=== PATIENT | male | born 1950 | race Caucasian/White ===

== ENCOUNTER 2016-04-30 00:59 | Inpatient (IN) | payer MEDICARE ==
[~2016-04-30] VITALS: Ht 182.9 cm; Wt 90.7 kg
[~2016-04-30 00:59] MED LIST: LORA-622 PO; MULTTAB61 PO; TIMO0.5S32 OP
[2016-04-30] MEDS ORDERED: LORazepam 2MG/ML-1ML VIAL ONE ×2 (01:09→03:05)
[2016-04-30] MEDS ORDERED: LORazepam 2MG/ML-1ML VIAL IV ONE ×4 (01:30→06:00)
[2016-04-30 01:33] LABS: Basophils # (auto) 0.1 uL; Basophils % (auto) 0.4 % (0.0-2.0); DEFINITIVE VIEW TRANSMISSION; Eosinophils # (auto) 0.8 uL; Eosinophils % (auto) 6.8 % (0.0-7.0); Hematocrit 46.1 % (41.0-53.0); Hemoglobin 14.5 g/dL (13.5-17.5); Lymphocytes % (auto) 32.3 % (10.0-50.0); Mean Corpuscular Hemoglobin 30.4 pg (28.0-32.0); Mean Corpuscular Hgb Conc. 31.4 g/dL (32.0-36.0); Mean Corpuscular Volume 96.8 fL (80.0-100.0); Mean Platelet Volume 7.5 fL (7.4-10.4); Monocytes # (auto) 0.8 uL; Monocytes % (auto) 6.4 % (0.0-12.0); Neutrophils # (auto) 6.7 uL; Neutrophils % (auto) 54.1 % (37.0-80.0); Platelet Count (auto) 289 10^3/uL (140-450); White Blood Cell 12.5 10^3/uL (4.4-10.8)
[2016-04-30 01:50] LABS: INR 1.11 (0.9-1.15); Partial Thromboplastin Time 28.2 sec (22.64-33.71); Prothrombin Time 11.4 sec (9.37-12.3)
[2016-04-30 01:54] LABS: BUN/Creatinine Ratio 15.8; Calcium 8.7 mg/dL (8.5-10.1); Magnesium 2.5 mg/dL (1.6-2.6); Potassium 3.8 mmol/L (3.5-5.1)
[2016-04-30 01:56] LABS: Urine Bilirubin Negative (Negative); Urine Blood TRACE /uL (Negative); Urine Color Yellow (Yellow); Urine Glucose Normal (Normal); Urine Hyaline Cast MOD /lpf (0 - 2); Urine Nitrite Negative (Negative); Urine RBC 2 /hpf (0 - 3); Urine Urobilinogen Normal (Negative)
[2016-04-30 01:57] LABS: Bilirubin, Total 0.2 mg/dL (0.2-1.0); Total Protein 7.7 g/dL (6.4-8.2)
[2016-04-30 01:57] LABS: Urine Ketone 1+ (Negative)
[2016-04-30] MEDS ORDERED: SODIUM BICARBONATE 8.4 % INJ 50ML VIAL IV ONE (02:15)
[2016-04-30] MEDS ORDERED: ETOMIDATE (2MG/ML) 20ML VIAL IV ONE (02:15)
[2016-04-30] MEDS ORDERED: SUCCINYLCHOLINE CHLORIDE 20 MG/ML 10ML VIAL IV ONE (02:15)
[2016-04-30] MEDS ORDERED: MIDAZOLAM DRIP 100 mg/100mL NS 100 ML IV SCH (02:15)
[2016-04-30] MEDS ORDERED: SODIUM CHLORIDE 0.9% 1,000 ML IV ONE (02:15)
[2016-04-30] MEDS ORDERED: PHENYTOIN SODIUM 50 MG/ML 5ML INJ VIAL IV ONE (02:52)
[2016-04-30] MEDS ORDERED: PHENYTOIN IV DILANTIN 1,000 MG in SODIUM CHL 0.9% 250 ML IV ONE (03:00)
[2016-04-30] MEDS ORDERED: HALOPERIDOL LACTATE 5 MG/ML INJ VIAL ONE (03:04)
[2016-04-30] MEDS ORDERED: diphenhdrAMINE HCL 50 MG/1 ML VL ONE (03:05)
[2016-04-30] MEDS ORDERED: HALOPERIDOL LACTATE 5 MG/ML INJ VIAL IM ONE ×2 (03:30→06:00)
[2016-04-30] MEDS ORDERED: diphenhdrAMINE HCL 50 MG/1 ML VL IV ONE ×2 (03:30→06:00)
[2016-04-30 05:00] VITALS: BP 145/77
[2016-04-30] MEDS ORDERED: DIVA500T59 PO (05:06)
[2016-04-30] MEDS ORDERED: NITROGLYCERIN 0.4 MG SL TAB SL PRN (06:45)
[2016-04-30] MEDS ORDERED: LORazepam 2MG/ML-1ML VIAL IV PRN (06:45)
[2016-04-30] MEDS ORDERED: ONDANSETRON HCL 4 MG/2 ML VIAL IV PRN (06:45)
[2016-04-30] MEDS ORDERED: HYDROcodone-ACET 5/325MG TAB PO PRN (06:45)
[2016-04-30] MEDS ORDERED: ACETAMINOPHEN 325 MG TAB PO PRN (06:45)
[2016-04-30] MEDS ORDERED: MORPHINE SULF INJ 2 MG/ML SYRINGE 1ML IV PRN (06:45)
[2016-04-30] MEDS: SODIUM CHLORIDE 0.9% 1,000 ML IV SCH ×2 (07:01→23:16)
[2016-04-30 09:00] VITALS: BP 112/71
[2016-04-30] MEDS ORDERED: DIVA500T12 PO (09:32)
[2016-04-30] MEDS: ENOXAPARIN SOD 40 MG/0.4 ML SYRINGE SC SCH (09:42)
[2016-04-30] MEDS: FAMOTIDINE 20 MG TAB PO SCH ×2 (09:43→22:07)
[2016-04-30] MEDS ORDERED: PHENYTOIN DILANTIN IV SCH (10:00)
[2016-04-30] MEDS ORDERED: SODIUM CHL 0.9% IV SCH (10:00)
[2016-04-30 10:07] VITALS: BP 112/75
[2016-04-30 13:00] VITALS: BP 108/66
[2016-04-30] MEDS ORDERED: DEXTROSE (50%) 50ML SYRG IV PRN (14:15)
[2016-04-30 17:00] VITALS: BP 121/79
[2016-04-30] MEDS: ACCU-CHEK COMFORT CURVE STRIP VI SCH ×2 (17:00→22:00)
[2016-04-30] MEDS: InsuLIN REG 1unit/0.01ml Soln (100units/ml) SC SCH ×2 (17:00→22:00)
[2016-04-30 22:00] VITALS: BP 124/74
[2016-05-01 05:47] LABS: Basophils # (auto) 0 uL; Basophils % (auto) 0.4 % (0.0-2.0); Eosinophils # (auto) 0.1 uL; Eosinophils % (auto) 0.6 % (0.0-7.0); Hematocrit 40.8 % (41.0-53.0); Hemoglobin 13.4 g/dL (13.5-17.5); Lymphocytes # (auto) 2.1 uL; Lymphocytes % (auto) 20.6 % (10.0-50.0); Mean Corpuscular Hemoglobin 30.5 pg (28.0-32.0); Mean Corpuscular Hgb Conc. 32.9 g/dL (32.0-36.0); Mean Corpuscular Volume 92.7 fL (80.0-100.0); Mean Platelet Volume 6.9 fL (7.4-10.4); Monocytes # (auto) 0.9 uL; Monocytes % (auto) 8.3 % (0.0-12.0); Neutrophils # (auto) 7.3 uL; Neutrophils % (auto) 70.1 % (37.0-80.0); Platelet Count (auto) 240 10^3/uL (140-450); Red Cell Distribution Width 14.7 % (11.6-16.0); White Blood Cell 10.4 10^3/uL (4.4-10.8)
[2016-05-01] MEDS: InsuLIN REG 1unit/0.01ml Soln (100units/ml) SC SCH ×2 (06:01→11:30)
[2016-05-01] MEDS: ACCU-CHEK COMFORT CURVE STRIP VI SCH ×2 (06:01→11:30)
[2016-05-01 06:16] LABS: Albumin 3.3 g/dL (3.4-5.0); BUN/Creatinine Ratio 14.6; Calcium 8.1 mg/dL (8.5-10.1); Potassium 3.9 mmol/L (3.5-5.1)
[2016-05-01 06:19] LABS: Bilirubin, Total 0.4 mg/dL (0.2-1.0); Total Protein 6.2 g/dL (6.4-8.2)
[2016-05-01 08:00] VITALS: BP 120/78
[2016-05-01] MEDS: ENOXAPARIN SOD 40 MG/0.4 ML SYRINGE SC SCH (09:52)
[2016-05-01] MEDS: FAMOTIDINE 20 MG TAB PO SCH (09:52)
[2016-05-01 11:28] VITALS: BP 120/78
[2016-05-01 12:00] VITALS: BP 133/79
== END 2016-05-01 12:42 | disposition home or self-care (01) | DRG 101 ==
LOC: EDBD 00:59 → ER 01:01 → TELE 01:02 → TELE-CENTR 09:05
PROVIDERS: ADMIT Nurse Practitioner; ATTEND Internal Medicine
DX: G40.409 Other generalized epilepsy and epileptic syndromes, not intractable, without status epilepticus (principal); F12.90 Cannabis use, unspecified, uncomplicated; N18.2 Chronic kidney disease, stage 2 (mild); E11.22 Type 2 diabetes mellitus with diabetic chronic kidney disease; H40.9 Unspecified glaucoma; Z80.3 Family history of malignant neoplasm of breast; Z82.0 Family history of epilepsy and other diseases of the nervous system; Z82.3 Family history of stroke; Z82.49 Family history of ischemic heart disease and other diseases of the circulatory system; Z87.828 Personal history of other (healed) physical injury and trauma; Z88.1 Allergy status to other antibiotic agents; Z87.81 Personal history of (healed) traumatic fracture
CPT/HCPCS: 36415; 36600; 51702; 70450; 71010; 72125; 80053; 81001; 82140; 82805; 82962; 83036; 83735; 84484; 85025; 85379; 85610; 85730; 87040; 87086; 93005; 96361; 96365; 96367; 96372; 96375; 96376; G0434; J0330

== ENCOUNTER → 2019-09-22 | Emergency (ER) | payer MEDICARE, OTHER ==
[~2019-09-22] VITALS: Ht 188 cm; Wt 95.3 kg
[~2019-09-22] MED LIST changes: +DIVA500T12 PO; -LORA-622 PO; +MULT-1018 PO; -MULTTAB61 PO
[2019-09-22 09:30] LABS: Basophils # (auto) 0 10 ^3/uL (0-0.2); Basophils % (auto) 0.2 % (0.0-2.0); Eosinophils # (auto) 0 10 ^3/uL (0-0.8); Eosinophils % (auto) 0.1 % (0.0-7.0); Hematocrit 47.4 % (41.0-53.0); Hemoglobin 15.7 g/dL (13.5-17.5); Lymphocytes # (auto) 0.7 10 ^3/uL (0.4-5.4); Lymphocytes % (auto) 5.8 % (10.0-50.0); Mean Corpuscular Hemoglobin 30.7 pg (28.0-32.0); Mean Corpuscular Volume 92.9 fL (80.0-100.0); Monocytes # (auto) 0.7 10 ^3/uL (0-1.3); Monocytes % (auto) 5.7 % (0.0-12.0); Neutrophils % (auto) 88.2 % (37.0-80.0); Platelet Count (auto) 178 10^3/uL (140-450); White Blood Cell 12.4 10^3/uL (4.4-10.8)
[2019-09-22 09:43] LABS: INR 1.07 (0.9-1.15); Partial Thromboplastin Time 25.6 sec (23.64-32.05)
[2019-09-22 09:47] LABS: Albumin 3.9 g/dL (3.4-5.0); Anion Gap 5 (5-15); Blood Urea Nitrogen 23 mg/dL (7-18); Calcium 9.1 mg/dL (8.5-10.1); Carbon Dioxide 27 mmol/L (21-32); Chloride 107 mmol/L (98-107); Glucose 121 mg/dL (74-106); Potassium 3.7 mmol/L (3.5-5.1); Sodium 139 mmol/L (136-145)
[2019-09-22 09:53] LABS: Alanine Aminotransferase 21 U/L (16-61); Alkaline Phosphatase 62 U/L (45-117); Aspartate Aminotransferase 14 U/L (15-37); BUN/Creatinine Ratio 22.5; Bilirubin, Total 0.5 mg/dL (0.2-1.0); GFR African American 93 mL/min; GFR Non-African American 77 mL/min; Total Protein 7.6 g/dL (6.4-8.2)
[2019-09-22 11:00] VITALS: BP 106/69
== END | disposition home or self-care (01) ==
LOC: EDUNIT# 04:54 → ER 04:59 → EDBD 04:59
DX: R56.9 Unspecified convulsions (principal)
CPT/HCPCS: 36415; 70450; 71045; 80053; 84484; 85025; 85610; 85730; 93005

== ENCOUNTER 2020-04-13 04:06 | Emergency (ER) | payer MEDICARE, OTHER ==
[~2020-04-13] VITALS: Ht 190.5 cm; Wt 81.6 kg
[2020-04-13] MEDS ORDERED: ACCU-CHEK COMFORT CURVE STRIP VI ONE (04:30)
[2020-04-13 05:01] LABS: Basophils # (auto) 0.1 10 ^3/uL (0-0.2); Basophils % (auto) 1.1 % (0.0-2.0); Eosinophils # (auto) 0.4 10 ^3/uL (0-0.8); Eosinophils % (auto) 3.5 % (0.0-7.0); Hematocrit 47.4 % (41.0-53.0); Hemoglobin 16.2 g/dL (13.5-17.5); Lymphocytes # (auto) 2.5 10 ^3/uL (0.4-5.4); Lymphocytes % (auto) 23.2 % (10.0-50.0); Mean Corpuscular Hemoglobin 32.1 pg (28.0-32.0); Mean Corpuscular Hgb Conc. 34.1 g/dL (32.0-36.0); Mean Corpuscular Volume 94.1 fL (80.0-100.0); Monocytes # (auto) 0.6 10 ^3/uL (0-1.3); Monocytes % (auto) 5.3 % (0.0-12.0); Neutrophils # (auto) 7.2 10 ^3/uL (1.6-8.6); Neutrophils % (auto) 66.9 % (37.0-80.0); Platelet Count (auto) 279 10^3/uL (140-450); Red Blood Cells 5.04 10^6/uL (4.5-5.90); Red Cell Distribution Width 14.1 % (11.8-14.3); White Blood Cell 10.7 10^3/uL (4.4-10.8)
[2020-04-13 05:18] LABS: Calcium 8.5 mg/dL (8.5-10.1); Potassium 4.5 mmol/L (3.5-5.1)
[2020-04-13 05:24] LABS: BUN/Creatinine Ratio 22.5; Bilirubin, Total 0.3 mg/dL (0.2-1.0)
[2020-04-13 07:56] LABS: Urine Amorphous Crystal FEW /hpf (None Seen); Urine Bacteria NONE SEEN /hpf (None Seen); Urine Blood 3+ /uL (Negative); Urine Hyaline Cast FEW /lpf (0 - 2); Urine Specific Gravity 1.021 (1.001-1.035); Urine WBC 10 /hpf (0 - 3)
[2020-04-13] MEDS ORDERED: cefTRIAXone 1GM/50ML D5W 50 ML IV ONE ×2 (08:13→08:15)
[2020-04-13] MEDS ORDERED: SODIUM CHLORIDE 0.9% 1,000 ML IV ONE (08:15)
[2020-04-13 12:19] VITALS: BP 126/68
== END 2020-04-13 12:20 | disposition home or self-care (01) ==
LOC: EDBD 04:06 → ER 04:09
DX: G40.802 Other epilepsy, not intractable, without status epilepticus (principal); N39.0 Urinary tract infection, site not specified
CPT/HCPCS: 36415; 70450; 71045; 71250; 72125; 73502; 74176; 80053; 81001; 82962; 85025; 93005; 96361; 96365; 99285; J0696

== ENCOUNTER → 2020-08-25 07:45 | Emergency (ER) | payer OTHER ==
[2020-08-25 07:55] VITALS: BP 109/83
== END | disposition left against medical advice (07) ==
LOC: ER 07:45
DX: I10 Essential (primary) hypertension (principal); Z53.21 Procedure and treatment not carried out due to patient leaving prior to being seen by health care provider

== ENCOUNTER 2020-09-28 19:51 | Inpatient (IN) | payer OTHER, MEDICARE ==
[~2020-09-28] VITALS: Ht 190.5 cm; Wt 84.1 kg
[2020-09-28] MEDS ORDERED: SODIUM CHLORIDE 0.9% 1,000 ML IV ONE (21:00)
[2020-09-28] MEDS ORDERED: SODIUM CHLORIDE 0.9% 500 ML IV ONE (21:00)
[2020-09-28 21:06] LABS: Basophils # (auto) 0.1 10 ^3/uL (0-0.2); Basophils % (auto) 0.7 % (0.0-2.0); Eosinophils # (auto) 0.3 10 ^3/uL (0-0.8); Eosinophils % (auto) 3.4 % (0.0-7.0); Hematocrit 45.7 % (41.0-53.0); Hemoglobin 15.3 g/dL (13.5-17.5); Lymphocytes # (auto) 2.8 10 ^3/uL (0.4-5.4); Lymphocytes % (auto) 36.3 % (10.0-50.0); Mean Corpuscular Hgb Conc. 33.5 g/dL (32.0-36.0); Mean Corpuscular Volume 92.5 fL (80.0-100.0); Monocytes # (auto) 0.6 10 ^3/uL (0-1.3); Monocytes % (auto) 7.1 % (0.0-12.0); Neutrophils # (auto) 4.1 10 ^3/uL (1.6-8.6); Neutrophils % (auto) 52.5 % (37.0-80.0); Nucleated Red Blood Cells % 0.2 %; Red Blood Cells 4.94 10^6/uL (4.5-5.90); White Blood Cell 7.8 10^3/uL (4.4-10.8)
[2020-09-28 21:23] LABS: Anion Gap 5 (5-15); Blood Urea Nitrogen 35 mg/dL (7-18); Calcium 9.2 mg/dL (8.5-10.1); Carbon Dioxide 26 mmol/L (21-32); Chloride 112 mmol/L (98-107); Glucose 108 mg/dL (74-106); Potassium 4.1 mmol/L (3.5-5.1); Sodium 143 mmol/L (136-145)
[2020-09-28 21:29] LABS: Alanine Aminotransferase 23 U/L (16-61); Alkaline Phosphatase 76 U/L (45-117); Aspartate Aminotransferase 15 U/L (15-37); BUN/Creatinine Ratio 19.8; Bilirubin, Total 0.2 mg/dL (0.2-1.0); GFR African American 49 mL/min; GFR Non-African American 40 mL/min; Total Protein 7.2 g/dL (6.4-8.2)
[2020-09-28] MEDS ORDERED: MORPHINE SULF INJ 2 MG/ML SYRINGE 1ML IV PRN (22:15)
[2020-09-28] MEDS ORDERED: ONDANSETRON HCL 4 MG/2 ML VIAL IV PRN (22:15)
[2020-09-28] MEDS ORDERED: ALBUMIN 5% 250 ML IV ONE (22:15)
[2020-09-28] MEDS ORDERED: ACETAMINOPHEN 325 MG TAB PO PRN (22:15)
[2020-09-28] MEDS ORDERED: NITROGLYCERIN 0.4 MG SL TAB SL PRN (22:15)
[2020-09-29 01:04] VITALS: BP 123/51
[2020-09-29] MEDS ORDERED: LAMO100T44 PO (01:38)
[2020-09-29] MEDS ORDERED: LAMO150T26 PO (01:38)
[2020-09-29] MEDS ORDERED: GABA300C10 PO (01:38)
[2020-09-29] MEDS ORDERED: CHOL20007 OR (01:40)
[2020-09-29] MEDS ORDERED: CETI10TA80 PO (01:40)
[2020-09-29 05:00] VITALS: BP 114/68
[2020-09-29 06:21] LABS: Basophils # (auto) 0 10 ^3/uL (0-0.2); Basophils % (auto) 0.6 % (0.0-2.0); Eosinophils # (auto) 0.4 10 ^3/uL (0-0.8); Eosinophils % (auto) 5.3 % (0.0-7.0); Hematocrit 40.8 % (41.0-53.0); Hemoglobin 13.5 g/dL (13.5-17.5); Lymphocytes # (auto) 2.2 10 ^3/uL (0.4-5.4); Lymphocytes % (auto) 31.8 % (10.0-50.0); Mean Corpuscular Hemoglobin 30.9 pg (28.0-32.0); Mean Corpuscular Hgb Conc. 33.2 g/dL (32.0-36.0); Mean Corpuscular Volume 93.1 fL (80.0-100.0); Monocytes # (auto) 0.5 10 ^3/uL (0-1.3); Monocytes % (auto) 7.3 % (0.0-12.0); Neutrophils # (auto) 3.9 10 ^3/uL (1.6-8.6); Nucleated Red Blood Cells % 0.1 %; Red Blood Cells 4.38 10^6/uL (4.5-5.90); Red Cell Distribution Width 14.5 % (11.8-14.3)
[2020-09-29 07:26] LABS: Potassium 4.6 mmol/L (3.5-5.1)
[2020-09-29 07:33] LABS: Albumin 3.5 g/dL (3.4-5.0); Calcium 8.3 mg/dL (8.5-10.1)
[2020-09-29 07:36] LABS: Bilirubin, Total 0.3 mg/dL (0.2-1.0); Total Protein 6.1 g/dL (6.4-8.2)
[2020-09-29 08:30] VITALS: BP 147/92
[2020-09-29] MEDS ORDERED: PANTOPRAZOLE 40 MG TAB PO SCH (10:00)
[2020-09-29 12:30] VITALS: BP 130/60
[2020-09-29 17:00] VITALS: BP 145/88
[2020-09-29] MEDS: SODIUM CHLORIDE 0.9% 1,000 ML IV SCH (17:48)
[2020-09-29 22:00] VITALS: BP_SYST 118; BP_SYST 150; BP_SYST 169; BP_DIAS 72; BP_DIAS 91; BP_DIAS 92
[2020-09-29 22:22] LABS: Alcohol, Urine < 3.0 mg/dL (0-10); Amphetamine Screen, Urine NEGATIVE (NEGATIVE); Barbiturate Scree,Urine NEGATIVE (NEGATIVE); Benzodiazephine Screen, Urine NEGATIVE (NEGATIVE); Cannabinoid Screen, Urine POSITIVE (NEGATIVE); Cocaine Screen, Urine NEGATIVE (NEGATIVE); Opiate Scree,Urine NEGATIVE (NEGATIVE); Phencyclidine Screen, Urine NEGATIVE (NEGATIVE)
[2020-09-29] MEDS ORDERED: lamoTRIgine 100 MG TAB PO SCH (22:32)
[2020-09-29] MEDS ORDERED: GABAPENTIN 300 MG CAP PO ONE (23:00)
[2020-09-30 05:00] VITALS: BP_SYST 141; BP_SYST 150; BP_SYST 162; BP_DIAS 104; BP_DIAS 122; BP_DIAS 75
[2020-09-30] MEDS: GABAPENTIN 300 MG CAP PO SCH ×2 (05:40→13:40)
[2020-09-30] MEDS ORDERED: GABAPENTIN 100 MG CAP PO SCH (06:00)
[2020-09-30 06:17] LABS: Anion Gap 3 (5-15); Blood Urea Nitrogen 18 mg/dL (7-18); Calcium 8.8 mg/dL (8.5-10.1); Carbon Dioxide 28 mmol/L (21-32); Chloride 112 mmol/L (98-107); Glucose 99 mg/dL (74-106); Magnesium 2.4 mg/dL (1.6-2.6); Potassium 4.3 mmol/L (3.5-5.1); Sodium 143 mmol/L (136-145)
[2020-09-30 06:25] LABS: BUN/Creatinine Ratio 18.2; Cholesterol 166 mg/dL (< 200); GFR African American 96 mL/min; GFR Non-African American 79 mL/min; HDL Cholesterol 48 mg/dL (40-59); LDL Cholesterol 102 mg/dL (< 100); Triglycerides 84 mg/dL (< 150)
[2020-09-30 09:00] VITALS: BP_SYST 149; BP_SYST 154; BP_SYST 158; BP_DIAS 101; BP_DIAS 109; BP_DIAS 91
[2020-09-30] MEDS ORDERED: lamoTRIgine 100 MG TAB PO SCH (10:00)
[2020-09-30] MEDS: SODIUM CHLORIDE 0.9% 1,000 ML IV SCH (10:39)
[2020-09-30 13:00] VITALS: BP_SYST 156; BP_SYST 160; BP_DIAS 101; BP_DIAS 84
[2020-09-30] MEDS ORDERED: amLODIPine BESYLATE 5 MG TAB PO ONE (13:00)
[2020-09-30] MEDS ORDERED: LISINOPRIL 20 MG TAB PO ONE (16:15)
[2020-09-30 17:00] VITALS: BP 152/98
[2020-09-30 17:04] VITALS: BP 145/93
== END 2020-09-30 17:30 | disposition home or self-care (01) | DRG 640 ==
LOC: ER 19:52 → TELE-CENTR 23:20
PROVIDERS: ADMIT Nurse Practitioner; ATTEND Internal Medicine
DX: E86.0 Dehydration (principal); N17.0 Acute kidney failure with tubular necrosis; E86.1 Hypovolemia; I95.89 Other hypotension; R00.0 Tachycardia, unspecified; Z20.822 Contact with and (suspected) exposure to COVID-19; Z88.8 Allergy status to other drugs, medicaments and biological substances; E78.5 Hyperlipidemia, unspecified; F12.90 Cannabis use, unspecified, uncomplicated; F43.10 Post-traumatic stress disorder, unspecified; I10 Essential (primary) hypertension; Z80.3 Family history of malignant neoplasm of breast; Z82.0 Family history of epilepsy and other diseases of the nervous system; Z82.3 Family history of stroke; Z82.49 Family history of ischemic heart disease and other diseases of the circulatory system
CPT/HCPCS: 36415; 71045; 80048; 80053; 80061; 80307; 83605; 83735; 83880; 84443; 84484; 85025; 87040; 87426; 93005; 93306; 96361; 96365; G0378

== ENCOUNTER 2020-10-24 22:00 | Inpatient (IN) | payer OTHER, MEDICARE ==
[~2020-10-24] VITALS: Ht 190.5 cm; Wt 84.8 kg
[~2020-10-24 22:00] MED LIST changes: +CETI10TA80 PO; +CHOL20007 OR; +GABA300C10 PO; +LAMO100T44 PO; +LAMO150T26 PO
[2020-10-24] MEDS ORDERED: SODIUM CHLORIDE 0.9% 1,000 ML IV ONE ×2 (22:15→22:30)
[2020-10-24] MEDS ORDERED: ADENOSINE 6 MG/2 ML INJ IV ONE ×2 (22:23→22:45)
[2020-10-24 22:39] LABS: Basophils # (auto) 0.1 10 ^3/uL (0-0.2); Basophils % (auto) 0.7 % (0.0-2.0); Eosinophils # (auto) 0.2 10 ^3/uL (0-0.8); Eosinophils % (auto) 2.1 % (0.0-7.0); Hematocrit 44.9 % (41.0-53.0); Lymphocytes # (auto) 2.4 10 ^3/uL (0.4-5.4); Lymphocytes % (auto) 33.1 % (10.0-50.0); Mean Corpuscular Hemoglobin 30.9 pg (28.0-32.0); Mean Corpuscular Hgb Conc. 33.4 g/dL (32.0-36.0); Mean Corpuscular Volume 92.5 fL (80.0-100.0); Monocytes # (auto) 0.7 10 ^3/uL (0-1.3); Monocytes % (auto) 9.2 % (0.0-12.0); Neutrophils % (auto) 54.9 % (37.0-80.0); Nucleated Red Blood Cells % 0.1 %; Red Blood Cells 4.85 10^6/uL (4.5-5.90); Red Cell Distribution Width 13.9 % (11.8-14.3); White Blood Cell 7.3 10^3/uL (4.4-10.8)
[2020-10-24 22:53] LABS: INR 1.1 (0.9-1.15)
[2020-10-24 23:02] LABS: Albumin 3.5 g/dL (3.4-5.0); Anion Gap 8 (5-15); Blood Urea Nitrogen 25 mg/dL (7-18); Calcium 8.9 mg/dL (8.5-10.1); Carbon Dioxide 23 mmol/L (21-32); Chloride 112 mmol/L (98-107); Glucose 111 mg/dL (74-106); Magnesium 2.1 mg/dL (1.6-2.6); Potassium 3.9 mmol/L (3.5-5.1); Sodium 143 mmol/L (136-145)
[2020-10-24 23:04] LABS: Alanine Aminotransferase 25 U/L (16-61); Aspartate Aminotransferase 19 U/L (15-37); BUN/Creatinine Ratio 19.1; GFR African American 69 mL/min; GFR Non-African American 57 mL/min
[2020-10-24 23:09] LABS: Alkaline Phosphatase 87 U/L (45-117); Bilirubin, Total 0.3 mg/dL (0.2-1.0); Total Protein 7.2 g/dL (6.4-8.2)
[2020-10-25 01:45] LABS: Urine Bacteria FEW /hpf (None Seen); Urine Blood Negative /uL (Negative); Urine Hyaline Cast FEW /lpf (0 - 2); Urine Specific Gravity 1.014 (1.001-1.035); Urine WBC 5 /hpf (0 - 3)
[2020-10-25] MEDS ORDERED: ASPirin 325 MG TAB PO ONE (04:45)
[2020-10-25] MEDS ORDERED: ENOXAPARIN SOD 100 MG/1 ML SYRINGE SC ONE (04:45)
[2020-10-25] MEDS ORDERED: MORPHINE SULFATE INJECTION 2 MG/2 ML SYRG IV PRN (07:45)
[2020-10-25] MEDS ORDERED: ACETAMINOPHEN 325 MG TAB PO PRN (07:45)
[2020-10-25] MEDS ORDERED: DOCUSATE SOD 100 MG CAP PO PRN (07:45)
[2020-10-25] MEDS ORDERED: HYDROcodone-ACET 5/325MG TAB PO PRN (07:45)
[2020-10-25] MEDS ORDERED: ONDANSETRON HCL 4 MG/2 ML VIAL IV PRN (07:45)
[2020-10-25] MEDS ORDERED: NITROGLYCERIN 0.4 MG SL TAB SL PRN (07:45)
[2020-10-25 08:33] LABS: Basophils # (auto) 0.1 10 ^3/uL (0-0.2); Basophils % (auto) 0.7 % (0.0-2.0); Eosinophils # (auto) 0.3 10 ^3/uL (0-0.8); Eosinophils % (auto) 3.3 % (0.0-7.0); Hemoglobin 13.7 g/dL (13.5-17.5); Lymphocytes # (auto) 2.2 10 ^3/uL (0.4-5.4); Lymphocytes % (auto) 28.3 % (10.0-50.0); Mean Corpuscular Hemoglobin 30.8 pg (28.0-32.0); Mean Corpuscular Hgb Conc. 33.3 g/dL (32.0-36.0); Mean Corpuscular Volume 92.5 fL (80.0-100.0); Monocytes # (auto) 0.5 10 ^3/uL (0-1.3); Monocytes % (auto) 6.9 % (0.0-12.0); Neutrophils # (auto) 4.6 10 ^3/uL (1.6-8.6); Neutrophils % (auto) 60.8 % (37.0-80.0); Nucleated Red Blood Cells % 0.1 %; Red Blood Cells 4.43 10^6/uL (4.5-5.90); Red Cell Distribution Width 14.2 % (11.8-14.3); White Blood Cell 7.7 10^3/uL (4.4-10.8)
[2020-10-25 08:57] LABS: Cholesterol 134 mg/dL (< 200); HDL Cholesterol 37 mg/dL (40-59); LDL Cholesterol 85 mg/dL (< 100); Triglycerides 63 mg/dL (< 150)
[2020-10-25] MEDS ORDERED: ZINC SULFATE 220mg CAP or TAB PO SCH (10:00)
[2020-10-25] MEDS ORDERED: MULTIPLE VITAMIN TAB PO SCH (10:00)
[2020-10-25] MEDS ORDERED: ASCORBIC ACID 500 MG TAB PO SCH (10:00)
[2020-10-25] MEDS ORDERED: ADENOSINE 71 MG in GIVE UN-DILUTED 0 ML IV ONE (10:15)
[2020-10-25 10:59] VITALS: BP 150/91
[2020-10-25] MEDS: ASPirin 81 mg TAB PO SCH (13:27)
[2020-10-25] MEDS: lamoTRIgine 100 MG TAB PO SCH ×2 (13:27→21:46)
[2020-10-25] MEDS: METOPROLOL TARTRATE 25 MG TAB PO SCH ×3 (13:28→22:00)
[2020-10-25] MEDS: FAMOTIDINE 20 MG TAB PO SCH (13:28)
[2020-10-25] MEDS ORDERED: SODIUM CHLORIDE 0.9% 250 ML IV ONE (13:45)
[2020-10-25] MEDS ORDERED: METOPROLOL SUCCINATE XL 50 MG TAB PO ONE (14:00)
[2020-10-25] MEDS ORDERED: GABAPENTIN 400 MG CAP PO SCH (14:00)
[2020-10-25] MEDS ORDERED: ATORVASTATIN 20 MG TAB PO ONE (14:00)
[2020-10-25] MEDS ORDERED: LORazepam 2MG/ML-1ML VIAL IV PRN (14:30)
[2020-10-25 14:43] LABS: Calcium 8.4 mg/dL (8.5-10.1); Potassium 4.2 mmol/L (3.5-5.1)
[2020-10-25] MEDS ORDERED: LABETALOL HCL 5 MG/ML 4ML SYRINGE IV PRN (14:45)
[2020-10-25 14:48] LABS: BUN/Creatinine Ratio 22.5; Bilirubin, Total 0.3 mg/dL (0.2-1.0); Total Protein 6.6 g/dL (6.4-8.2)
[2020-10-25] MEDS: GABAPENTIN 300 MG CAP PO SCH ×2 (16:54→21:46)
[2020-10-25 16:58] VITALS: BP 154/92
[2020-10-25 18:29] VITALS: BP 145/80
[2020-10-25] MEDS: SODIUM CHLORIDE 0.9% 1,000 ML IV SCH ×2 (19:19→21:53)
[2020-10-25] MEDS: ENOXAPARIN SOD 100 MG/1 ML SYRINGE SC SCH (21:47)
[2020-10-25] MEDS ORDERED: GABAPENTIN 300 MG CAP PO SCH (22:00)
[2020-10-25] MEDS ORDERED: ENOXAPARIN SOD 40 MG/0.4 ML SYRINGE SC SCH (22:00)
[2020-10-26] MEDS: GABAPENTIN 300 MG CAP PO SCH ×3 (06:16→22:02)
[2020-10-26 06:22] VITALS: BP 150/96
[2020-10-26 07:21] LABS: INR 1.1 (0.9-1.15); Partial Thromboplastin Time 31.1 sec (23.6-33.0)
[2020-10-26 07:40] LABS: Anion Gap 5 (5-15); Blood Urea Nitrogen 22 mg/dL (7-18); Calcium 8.5 mg/dL (8.5-10.1); Carbon Dioxide 24 mmol/L (21-32); Chloride 112 mmol/L (98-107); Glucose 86 mg/dL (74-106); Magnesium 2.2 mg/dL (1.6-2.6); Potassium 4.2 mmol/L (3.5-5.1); Sodium 141 mmol/L (136-145)
[2020-10-26 07:46] LABS: Alanine Aminotransferase 21 U/L (16-61); Alkaline Phosphatase 76 U/L (45-117); Aspartate Aminotransferase 16 U/L (15-37); BUN/Creatinine Ratio 24.2; Bilirubin, Total 0.4 mg/dL (0.2-1.0); GFR African American 105 mL/min; GFR Non-African American 87 mL/min; Phosphorus 2.2 mg/dL (2.5-4.90); Total Protein 6.6 g/dL (6.4-8.2)
[2020-10-26 07:57] LABS: Basophils # (auto) 0 10 ^3/uL (0-0.2); Basophils % (auto) 0.6 % (0.0-2.0); Eosinophils # (auto) 0.3 10 ^3/uL (0-0.8); Eosinophils % (auto) 4.4 % (0.0-7.0); Hemoglobin 13.8 g/dL (13.5-17.5); Lymphocytes # (auto) 1.9 10 ^3/uL (0.4-5.4); Lymphocytes % (auto) 24.2 % (10.0-50.0); Mean Corpuscular Hgb Conc. 33.6 g/dL (32.0-36.0); Mean Corpuscular Volume 92.4 fL (80.0-100.0); Monocytes # (auto) 0.6 10 ^3/uL (0-1.3); Monocytes % (auto) 7.9 % (0.0-12.0); Neutrophils # (auto) 4.9 10 ^3/uL (1.6-8.6); Neutrophils % (auto) 62.9 % (37.0-80.0); Nucleated Red Blood Cells % 0.2 %; Red Blood Cells 4.44 10^6/uL (4.5-5.90); Red Cell Distribution Width 13.8 % (11.8-14.3); White Blood Cell 7.7 10^3/uL (4.4-10.8)
[2020-10-26 08:57] VITALS: BP 143/74
[2020-10-26] MEDS: FAMOTIDINE 20 MG TAB PO SCH (09:22)
[2020-10-26] MEDS: lamoTRIgine 100 MG TAB PO SCH ×2 (09:23→22:02)
[2020-10-26] MEDS: METOPROLOL TARTRATE 25 MG TAB PO SCH ×2 (09:23→22:02)
[2020-10-26] MEDS: ASPirin 81 mg TAB PO SCH (09:23)
[2020-10-26] MEDS: ENOXAPARIN SOD 100 MG/1 ML SYRINGE SC SCH (09:24)
[2020-10-26] MEDS ORDERED: ENOXAPARIN SOD 40 MG/0.4 ML SYRINGE SC SCH (10:00)
[2020-10-26] MEDS ORDERED: FLECAINIDE ACETATE 50 MG TAB PO ONE (12:15)
[2020-10-26 13:00] VITALS: BP 149/97
[2020-10-26 16:51] VITALS: BP 149/74
[2020-10-26] MEDS: NEUTRA-PHOS TABLET PO SCH (18:00)
[2020-10-26 22:00] VITALS: BP 128/84
[2020-10-26] MEDS ORDERED: ENOXAPARIN SOD 80 MG/0.8ML SYRINGE SC SCH (22:00)
[2020-10-26] MEDS ORDERED: ATORVASTATIN 20 MG TAB PO SCH (22:00)
[2020-10-26] MEDS: FLECAINIDE ACETATE 50 MG TAB PO SCH (22:04)
[2020-10-27 05:00] VITALS: BP 131/84
[2020-10-27] MEDS: GABAPENTIN 300 MG CAP PO SCH (06:21)
[2020-10-27 09:00] VITALS: BP 159/96
[2020-10-27] MEDS: lamoTRIgine 100 MG TAB PO SCH (09:38)
[2020-10-27] MEDS: FAMOTIDINE 20 MG TAB PO SCH (09:39)
[2020-10-27] MEDS: ASPirin 81 mg TAB PO SCH (09:39)
[2020-10-27] MEDS: FLECAINIDE ACETATE 50 MG TAB PO SCH (09:40)
[2020-10-27] MEDS: METOPROLOL TARTRATE 25 MG TAB PO SCH (09:41)
[2020-10-27] MEDS: NEUTRA-PHOS TABLET PO SCH ×2 (09:41→12:00)
[2020-10-27 12:13] VITALS: BP 159/96
== END 2020-10-27 13:35 | disposition home or self-care (01) | DRG 309 ==
LOC: ER 22:02 → TELE 10-25 07:32 → TELE-WESTW 10-25 12:00 → TELE 10-25 12:00 → TELE-WESTW 10-25 12:36
PROVIDERS: ADMIT Nurse Practitioner Family; ATTEND Internal Medicine Nephrology
DX: I47.1 Supraventricular tachycardia (principal); N17.9 Acute kidney failure, unspecified; Z20.822 Contact with and (suspected) exposure to COVID-19; G40.909 Epilepsy, unspecified, not intractable, without status epilepticus; F43.10 Post-traumatic stress disorder, unspecified; E78.5 Hyperlipidemia, unspecified; I10 Essential (primary) hypertension; M54.9 Dorsalgia, unspecified; R00.1 Bradycardia, unspecified; G89.29 Other chronic pain; F12.90 Cannabis use, unspecified, uncomplicated; Z82.0 Family history of epilepsy and other diseases of the nervous system; Z82.49 Family history of ischemic heart disease and other diseases of the circulatory system; Z88.1 Allergy status to other antibiotic agents; Z90.89 Acquired absence of other organs; Z80.3 Family history of malignant neoplasm of breast; Z82.3 Family history of stroke; Z98.41 Cataract extraction status, right eye; Z98.42 Cataract extraction status, left eye; Z79.899 Other long term (current) drug therapy
CPT/HCPCS: 36415; 71045; 78452; 80053; 80061; 81001; 82306; 83036; 83605; 83735; 83880; 84100; 84443; 84484; 85025; 85379; 85610; 85730; 87426; 93005; 93017; 96361; 96365; 96372; 99291; G0378; J0153; J2405

== ENCOUNTER 2021-02-02 13:28 | Emergency (ER) | payer MEDICARE, OTHER ==
[~2021-02-02] VITALS: Ht 190.5 cm; Wt 93.0 kg
[~2021-02-02 13:28] MED LIST changes: +CETI10TA2 PO; -CETI10TA80 PO
[2021-02-02] MEDS ORDERED: PERCOT PO (17:02)
[2021-02-02] MEDS ORDERED: CEPH-322 PO (17:02)
[2021-02-02 17:41] VITALS: BP 106/70
== END 2021-02-02 17:59 | disposition home or self-care (01) ==
LOC: ER 13:28
DX: M79.89 Other specified soft tissue disorders (principal); I10 Essential (primary) hypertension; Z88.1 Allergy status to other antibiotic agents
CPT/HCPCS: 73200

== ENCOUNTER → 2021-07-13 | Outpatient (CLI) | payer MEDICARE, OTHER ==
[~2021-07-13] MED LIST changes: +CEPH-322 PO; +PERCOT PO
[2021-07-13 09:32] LABS: Albumin 3.6 g/dL (3.4-5.0)
[2021-07-13 09:37] LABS: Bilirubin, Direct 0.2 mg/dL (0-0.2); Bilirubin, Total 0.5 mg/dL (0.2-1.0); Total Protein 7.1 g/dL (6.4-8.2)
== END | disposition home or self-care (01) ==
LOC: LAB 07:50
PROVIDERS: ATTEND Podiatrist
DX: B35.1 Tinea unguium (principal)
CPT/HCPCS: 36415; 80076

== ENCOUNTER → 2021-09-20 | Outpatient (CLI) | payer MEDICARE, OTHER ==
[2021-09-20 11:22] LABS: Albumin 3.8 g/dL (3.4-5.0)
[2021-09-20 11:27] LABS: Bilirubin, Direct 0.2 mg/dL (0-0.2); Bilirubin, Total 0.5 mg/dL (0.2-1.0); Total Protein 7.4 g/dL (6.4-8.2)
== END | disposition home or self-care (01) ==
LOC: LAB 10:32
PROVIDERS: ATTEND Podiatrist
DX: B35.1 Tinea unguium (principal)
CPT/HCPCS: 36415; 80076